=== PATIENT | male | born 1990 | race Hispanic/Latino ===

== ENCOUNTER 2018-08-02 14:00 | Emergency (ER) | payer SELFPAY ==
[2018-08-02 14:01] VITALS: BMI 21.5
[2018-08-02 14:49] VITALS: BP 142/85; PULSE 108; RESP 20; TEMP 98.1; O2SAT 100
[2018-08-02] MEDS ORDERED: Tdap Vaccine 0.5 ml Vial (10-64 yrs) IM ONE (15:00)
[2018-08-02] MEDS ORDERED: Silver Sulfadiazine 1% CREAM (50 gm) TOP STA (15:00)
--- NOTE | 2018-08-02 15:34 | ED PDOC ---
HPI: Dental Pain/Injury Time Seen by Provider: 08/02/18 15:32 Chief Complaint (Nursing): Dental Pain Chief Complaint (Provider): DENTAL PAIN History Per: Patient (28 Y/O MALE HERE WITH DENTAL PAIN NOTED ONGOING SECONDARY TO BROKEN TOOTH. PATIENT SEEN HERE LAST YEAR IN ED FOR SIMILAR COMPLAINT. DENIES ANY FEVERS/CHILLS. UNABLE TO F/U WITH DENTIST DUE TO PAIN.) Past Medical History Reviewed: Historical Data, Nursing Documentation, Vital Signs Vital Signs: Last Vital Signs Temp 98.1 F 08/02/18 14:47 Pulse 108 H 08/02/18 14:47 Resp 20 08/02/18 14:47 BP 142/85 08/02/18 14:47 Pulse Ox 100 08/02/18 14:47 - Family History Family History: States: Unknown Family Hx - Immunization History Hx Tetanus Toxoid Vaccination: Yes (2013) - Home Medications Home Medications: Ambulatory Orders Medication Instructions Recorded Oxycodone HCl/Acetaminophen 1 tab PO Q6 #5 tab 03/19/15 [Percocet 325 mg-5 mg] Oxycodone HCl/Acetaminophen 1 tab PO Q6 PRN #10 tab 05/30/15 [Percocet 325 mg-5 mg] Amoxicillin 500 mg PO TID #21 tablet 10/31/17 Ibuprofen [Motrin Tab] 600 mg PO Q6 #15 tab 10/31/17 traMADol [Ultram] 50 mg PO TID #10 tab 10/31/17 Clindamycin [Cleocin] 300 mg PO Q6 #28 cap 08/02/18 Naproxen 375 mg PO Q8 PRN #21 tablet 08/02/18 - Allergies Allergies/Adverse Reactions: Allergies Allergy/AdvReac Type Severity Reaction Status Date / Time No Known Allergies Allergy Verified 08/02/18 14:47 Review of Systems ROS Statement: Except As Marked, All Systems Reviewed And Found Negative Physical Exam - Reviewed Nursing Documentation Reviewed: Yes Vital Signs Reviewed: Yes - Physical Exam Appears: Positive for: Well, Non-toxic, No Acute Distress Head Exam: Positive for: ATRAUMATIC, NORMAL INSPECTION, NORMOCEPHALIC Skin: Positive for: Normal Color, Warm, DRY Eye Exam: Positive for: EOMI, Normal appearance, PERRL ENT: Negative for: Normal ENT Inspection (LEFT LOWER MAXILLARY DENTAL CARIES.) Neck: Positive for: Normal, Painless ROM Cardiovascular/Chest: Positive for: Regular Rate, Rhythm Respiratory: Positive for: CNT, Normal Breath Sounds Gastrointestinal/Abdominal: Positive for: Normal Exam, Soft Back: Positive for: Normal Inspection Extremity: Positive for: Normal ROM Neurologic/Psych: Positive for: Alert, Oriented - ECG O2 Sat by Pulse Oximetry: 100 - Progress ED Course And Treament: [facility] REVIEWED 07/16/2018 GIVEN PERCOCET 5/325 #12 / PRIOR 06/01/2018 #10. TRAMADOL 50 MG X 1 DOSE IN ED Disposition - Clinical Impression Clinical Impression: Dental caries - Patient ED Disposition Is Patient to be Admitted: No - Disposition Referrals: Gerard Patel DDS [Staff Provider] - Disposition: Routine/Home Disposition Time: 15:35 Condition: FAIR Prescriptions: Clindamycin [Cleocin] 300 mg PO Q6 #28 cap Naproxen 375 mg PO Q8 PRN #21 tablet PRN Reason: Pain, Moderate (4-7) Instructions: Tooth Decay, Adult (DC)
== END 2018-08-02 15:49 | disposition home or self-care (01) ==
LOC: H.ER 14:00
DX: K02.9 Dental caries, unspecified (principal)